=== PATIENT | male | born 1980 | race Caucasian/White ===

== ENCOUNTER 2019-09-29 23:57 | Emergency (ER) | payer SELFPAY ==
--- NOTE | 2019-09-30 01:09 | ER ---
Nurse's Notes [facility] Name: Anil Pickett Age: 39 yrs Sex: Male : 1980 Arrival Date: 09/29/2019 Time: 23:58 Bed 6 Private MD: Diagnosis: Bipolar disorder;Schizophrenia;Abuse of non-psychoactive substances;Adverse effect of amphetamines Presentation: 09/29 00:12 Chief complaint: Patient states: Hearing voices, feeling paranoid for 2 days. Taking ll1 meds as prescribed, but feels they need adjusted. Denies SI/HI. Coronavirus screen: Proceed with normal triage. Patient denies a cough. Patient denies shortness of breath or difficulty breathing. Patient denies measured and/or subjective temperature greater than 100.4F prior to today's visit. Patient denies travel on a cruise ship or to a country the [facility] currently lists as an affected area. Patient denies contact with known and/or suspected case of COVID-19. Ebola Screen: Patient denies travel to an Ebola-affected area in the 21 days before illness onset. Initial Sepsis Screen: Does the patient meet any 2 criteria? HR > 90 bpm. No. Patient's initial sepsis screen is negative. Risk Assessment: Do you want to hurt yourself or someone else? Patient reports no desire to harm self or others. 00:12 Method Of Arrival: Ambulatory ll1 00:12 Acuity: ABDOULAYE 3 ll1 01:33 Initial Sepsis Screen: Does the patient have a suspected source of infection? No. mg2 Patient's initial sepsis screen is negative. Onset of symptoms was September 29, 2019. Historical: - Allergies: 00:14 Erythromycin; ll1 - PMHx: 00:14 Bipolar disorder; schizoaffective; ll1 - PSHx: 00:14 None; ll1 - Immunization history:: Flu vaccine status is unknown. - Social history:: Smoking status: Patient reports the use of cigarette tobacco products, smokes one pack cigarettes per day. Patient/guardian denies using alcohol, street drugs. Screenin:32 Abuse screen: Denies threats or abuse. Denies injuries from another. Nutritional mg2 screening: No deficits noted. Tuberculosis screening: No symptoms or risk factors identified. Fall Risk IV access (20 points). Assessment: 01:31 General: Appears in no apparent distress. comfortable, Behavior is calm, cooperative. mg2 Pain: Denies pain. Neuro: Level of Consciousness is awake, alert, obeys commands, Oriented to person, place, time, situation, Reports hearing voices saying names that he dont know but denies SI or HI. Cardiovascular: Capillary refill < 3 seconds Patient's skin is warm and dry. Respiratory: Airway is patent Respiratory effort is even, unlabored, Respiratory pattern is regular, symmetrical. GI: No signs and/or symptoms were reported involving the gastrointestinal system. : No signs and/or symptoms were reported regarding the genitourinary system. EENT: No signs and/or symptoms were reported regarding the EENT system. Derm: Skin is intact, is healthy with good turgor, Skin is pink, warm \T\ dry. normal. Derm: Musculoskeletal: Circulation, motion, and sensation intact. Capillary refill < 3 seconds. 02:30 Reassessment: Patient appears in no apparent distress at this time. No changes from previously documented assessment. Patient and/or family updated on plan of care and expected duration. Pain level reassessed. Patient is alert, oriented x 3, equal unlabored respirations, skin warm/dry/pink. 03:30 Reassessment: Patient appears in no apparent distress at this time. No changes from previously documented assessment. Patient and/or family updated on plan of care and expected duration. Pain level reassessed. Patient is alert, oriented x 3, equal unlabored respirations, skin warm/dry/pink. Vital Signs: 00:12 BP 120 / 93; Pulse 113; Resp 18; Temp 97.7; Pulse Ox 100% ; Weight 61.23 kg; Height 6 ll1 ft. 0 in. (182.88 cm); Pain 0/10; 02:00 BP 118 / 78; Pulse 86; Resp 18; Pulse Ox 99% on R/A; wh 03:30 BP 124 / 84; Pulse 84; Resp 18; Pulse Ox 99% on R/A; wh 00:12 Body Mass Index 18.31 (61.23 kg, 182.88 cm) ll1 ED Course: 09/28 23:58 Patient arrived in ED. mr 09/29 00:13 Triage completed. ll1 00:14 Arm band placed on. ll1 00:41 Valdo Aguirre, REANNA is Primary Nurse. mg2 00:50 Antelmo Flores MD is Attending Physician. [facility] 01:25 Inserted saline lock: 20 gauge in right antecubital area, using aseptic technique. mg2 Blood collected. 01:31 No provider procedures requiring assistance completed. mg2 01:32 Patient has correct armband on for positive identification. Pulse ox on. NIBP on. Door mg2 closed. Warm blanket given. 02:02 called [facility] spoke to [place] to have screener evaluate patient. mw2 03:35 IV discontinued, intact, bleeding controlled, No redness/swelling at site. Administered Medications: 01:25 Drug: NS 0.9% 1000 ml Route: IV; Rate: 1 bolus; Site: right forearm; [facility] [place] 03:16 Follow up: Response: No adverse reaction; IV Status: Completed infusion 03:25 Drug: Ativan 1 mg Route: IVP; Site: right forearm; 03:34 Follow up: Response: No adverse reaction; Anxiety decreased; RASS: Alert and Calm (0) Outcome: 01:09 ER care complete, transfer ordered by . [facility] 03:07 Discharge ordered by . [facility] 03:34 Discharged to home ambulatory. 03:34 Condition: stable 03:34 Discharge instructions given to patient, Instructed on discharge instructions, follow up and referral plans. no drinking with medication, no driving heavy equipment, medication usage, POC. 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 03:35 Patient left the ED. Signatures: Antelmo Flores MD MD cha Rivera, Mary mr Ashton Nicole Satinder Laguerre mw2 Valdo Aguirre RN RN mg2 Elijah Khan RN RN ll1
--- NOTE | 2019-09-30 01:09 | EDPHYS ---
Physician Documentation [facility] Name: Anil Pickett Age: 39 yrs Sex: Male : 1980 Arrival Date: 09/29/2019 Time: 23:58 Bed 6 Private MD: YANE Physician Antelmo Flores HPI: 09/29 01:03 This 39 yrs old Male presents to ER via Ambulatory with complaints of Hearing tree voices, Hallucinations. 01:03 The patient presents to the emergency department with paranoia, psychosis, has tree experienced auditory hallucinations, random voices. Onset: The symptoms/episode began/occurred 5 day(s) ago. Past psychiatric history: Prior diagnosis: schizophrenia. Associated signs and symptoms: The patient has no apparent associated signs or symptoms. Severity of symptoms: At their worst the symptoms were mild in the emergency department the symptoms are unchanged. The patient has experienced similar episodes in the past, multiple times. Historical: - Allergies: 00:14 Erythromycin; ll1 - PMHx: 00:14 Bipolar disorder; schizoaffective; ll1 - PSHx: 00:14 None; ll1 - Immunization history:: Flu vaccine status is unknown. - Social history:: Smoking status: Patient reports the use of cigarette tobacco products, smokes one pack cigarettes per day. Patient/guardian denies using alcohol, street drugs. ROS: 01:04 Constitutional: Negative for fever, chills, and weight loss, Eyes: Negative for injury, tree pain, redness, and discharge, ENT: Negative for injury, pain, and discharge, Neck: Negative for injury, pain, and swelling, Cardiovascular: Negative for chest pain, palpitations, and edema, Respiratory: Negative for shortness of breath, cough, wheezing, and pleuritic chest pain, Abdomen/GI: Negative for abdominal pain, nausea, vomiting, diarrhea, and constipation, Back: Negative for injury and pain, : Negative for injury, bleeding, discharge, and swelling, MS/Extremity: Negative for injury and deformity, Skin: Negative for injury, rash, and discoloration, Neuro: Negative for headache, weakness, numbness, tingling, and seizure, Allergy/Immunology: Negative for hives, rash, and allergies, Endocrine: Negative for neck swelling, polydipsia, polyuria, polyphagia, and marked weight changes, Hematologic/Lymphatic: Negative for swollen nodes, abnormal bleeding, and unusual bruising. 01:04 Psych: Positive for anxiety, auditory hallucinations. Exam: 01:04 Constitutional: This is a well developed, well nourished patient who is awake, alert, tree and in no acute distress. Head/Face: Normocephalic, atraumatic. Eyes: Pupils equal round and reactive to light, extra-ocular motions intact. Lids and lashes normal. Conjunctiva and sclera are non-icteric and not injected. Cornea within normal limits. Periorbital areas with no swelling, redness, or edema. ENT: Nares patent. No nasal discharge, no septal abnormalities noted. Tympanic membranes are normal and external auditory canals are clear. Oropharynx with no redness, swelling, or masses, exudates, or evidence of obstruction, uvula midline. Mucous membranes moist. Neck: Trachea midline, no thyromegaly or masses palpated, and no cervical lymphadenopathy. Supple, full range of motion without nuchal rigidity, or vertebral point tenderness. No Meningismus. Chest/axilla: Normal chest wall appearance and motion. Nontender with no deformity. No lesions are appreciated. Cardiovascular: Regular rate and rhythm with a normal S1 and S2. No gallops, murmurs, or rubs. Normal PMI, no JVD. No pulse deficits. Respiratory: Lungs have equal breath sounds bilaterally, clear to auscultation and percussion. No rales, rhonchi or wheezes noted. No increased work of breathing, no retractions or nasal flaring. Abdomen/GI: Soft, non-tender, with normal bowel sounds. No distension or tympany. No guarding or rebound. No evidence of tenderness throughout. Back: No spinal tenderness. No costovertebral tenderness. Full range of motion. Male : Normal genitalia with no discharge or lesions. Skin: Warm, dry with normal turgor. Normal color with no rashes, no lesions, and no evidence of cellulitis. MS/ Extremity: Pulses equal, no cyanosis. Neurovascular intact. Full, normal range of motion. Neuro: Awake and alert, GCS 15, oriented to person, place, time, and situation. Cranial nerves II-XII grossly intact. Motor strength 5/5 in all extremities. Sensory grossly intact. Cerebellar exam normal. Normal gait. 01:04 Psych: Behavior/mood is pleasant, cooperative, Affect is calm, Oriented to person, place, time, Patient has no thoughts/intents to harm self or others. Judgement / Insight is normal. Delusions/hallucinations hearing voices. 03:12 ECG was reviewed by the Attending Physician. [facility] Vital Signs: 00:12 BP 120 / 93; Pulse 113; Resp 18; Temp 97.7; Pulse Ox 100% ; Weight 61.23 kg; Height 6 ll1 ft. 0 in. (182.88 cm); Pain 0/10; 02:00 BP 118 / 78; Pulse 86; Resp 18; Pulse Ox 99% on R/A; wh 03:30 BP 124 / 84; Pulse 84; Resp 18; Pulse Ox 99% on R/A; wh 00:12 Body Mass Index 18.31 (61.23 kg, 182.88 cm) ll1 MDM: 00:50 Patient medically screened. [facility] 01:07 Data reviewed: vital signs, nurses notes, lab test result(s), EKG. [facility] 03:09 Differential diagnosis: drug withdrawal. acute psychotic break, depression, psychosis tree secondary to non-compliance. Data interpreted: quality assurance monitor body: rate is 113 beats/min, rhythm is normal sinus rhythm, Pulse oximetry: on room air is 100 %. Test interpretation: by ED physician or midlevel provider: ECG. Counseling: I had a detailed discussion with the patient and/or guardian regarding: the historical points, exam findings, and any diagnostic results supporting the discharge/admit diagnosis, lab results, the need for outpatient follow up, for definitive care, a psychiatrist. ED course: dw with [facility], pt not homicidal , not suicidal, uds positive for meth, will dc home to follow up [facility]. 09/29 01:03 Order name: Acetaminophen; Complete Time: 03:04 [facility] 09/29 01:03 Order name: Basic Metabolic Panel; Complete Time: 03:04 [facility] 09/29 01:03 Order name: CBC with Diff; Complete Time: [facility] 09/29 01:03 Order name: ETOH Level; Complete Time: [facility] 09/29 01:03 Order name: Hepatic Function; Complete Time: 03:04 [facility] 09/29 01:03 Order name: PT-INR; Complete Time: [facility] 09/29 01:03 Order name: Ptt, Activated; Complete Time: [facility] 09/29 01:03 Order name: Salicylate; Complete Time: 01:53 [facility] 09/29 01:03 Order name: Urine Drug Screen; Complete Time: 01:53 [facility] 09/29 01:03 Order name: Depakote; Complete Time: 03:04 [facility] 09/29 01:30 Order name: Urine Dipstick--Ancillary (enter results) mw2 09/29 01:32 Order name: Urine Dipstick-Ancillary EDMS 09/29 01:03 Order name: EKG; Complete Time: 01:05 [facility] 09/29 01:03 Order name: EKG - Nurse/Tech; Complete Time: 01:30 [facility] 09/29 01:03 Order name: IV Saline Lock; Complete Time: 01:30 [facility] 09/29 01:03 Order name: Labs collected and sent; Complete Time: : [facility] 09/29 01:03 Order name: Urine Dipstick-Ancillary (obtain specimen); Complete Time: 01:30 [facility] EC:12 Rate is 90 beats/min. Rhythm is regular. QRS Denio is Normal. GA interval is normal. QRS tree interval is normal. QT interval is normal. No Q waves. T waves are Normal. No ST changes noted. Clinical impression: Normal ECG and No evidence of ischemia. Interpreted by me. Reviewed by me. Administered Medications: 01:25 Drug: NS 0.9% 1000 ml Route: IV; Rate: 1 bolus; Site: right forearm; [facility] 03:16 Follow up: Response: No adverse reaction; IV Status: Completed infusion 03:25 Drug: Ativan 1 mg Route: IVP; Site: right forearm; wh 03:34 Follow up: Response: No adverse reaction; Anxiety decreased; RASS: Alert and Calm (0) Disposition: 09/30/19 03:07 Discharged to Home. Impression: Bipolar disorder, Schizophrenia, Abuse of non-psychoactive substances, Adverse effect of amphetamines. - Condition is Stable. - Discharge Instructions: Stimulant Use Disorder-Amphetamines, Bipolar Disorder, Substance Use Disorder, Schizophrenia, Stimulant Use Disorder-Methamphetamines. - Prescriptions for hydroxyzine HCl 25 mg Oral tablet - take 1 tablet by ORAL route 3 times per day as needed; 30 tablet. - Medication Reconciliation Form, Thank You Letter, Antibiotic Education, Prescription Opioid Use form. - Follow up: Private Physician; When: 2 - 3 days; Reason: Recheck today's complaints, Continuance of care, Re-evaluation by your physician. - Problem is new. - Symptoms have improved. Signatures: Dispatcher [employer] EDAntelmo Lawson MD MD cha Habalo, Winsy wh Gardose, Michele, RN RN mg2 Elijah Khan RN RN ll1 Corrections: (The following items were deleted from the chart) 03:05 01:09 09/30/2019 01:09 Transfer ordered to Psych Facility. Diagnosis is Schizophrenia, tree unspecified; Bipolar disorder; Hallucinations, unspecified. Reason for transfer: Higher level of care. Accepting physician is to psych. Condition is Stable. Problem is new. Symptoms have improved. [facility] 03:35 03:07 09/30/2019 03:07 Discharged to Home. Impression: Bipolar disorder; Schizophrenia; wh Abuse of non-psychoactive substances; Adverse effect of amphetamines. Condition is Stable. Forms are Medication Reconciliation Form, Thank You Letter, Antibiotic Education, Prescription Opioid Use. Follow up: Private Physician; When: 2 - 3 days; Reason: Recheck today's complaints, Continuance of care, Re-evaluation by your physician. Problem is new. Symptoms have improved. tree
[2019-09-30] MEDS ORDERED: NA CHLORIDE 0.9% 1,000 ML ONE (01:20)
[2019-09-30 01:32] LABS: Urine Blood NEGATIVE (NEG); Urine Glucose NEGATIVE (NEG); Urine Protein NEGATIVE (NEG); Urine Specific Gravity 1.025 (1.005-1.030); Urine pH 6.5 (5.0-7.0)
[2019-09-30 01:34] LABS: Absolute Lymphocytes (CBC) 1.6 K/uL (0.7-4.9); Hematocrit 49.5 % (39.6-49.0); Lymphocytes % 21.2 % (15.3-44.8); MPV 7.7 fL (7.6-11.3); RBC Red Blood Cell Count 5.46 M/uL (4.33-5.43)
[2019-09-30 01:39] LABS: Protime INR 1.04
[2019-09-30 01:52] LABS: Barbiturates NEGATIVE (NEGATIVE); Benzodiazepines NEGATIVE (NEGATIVE); Cocaine NEGATIVE (NEGATIVE); METHAMPHETAM POSITIVE (NEGATIVE); Methadone NEGATIVE (NEGATIVE); Opiates NEGATIVE (NEGATIVE); Phencyclidine NEGATIVE (NEGATIVE); THC Cannibis NEGATIVE (NEGATIVE)
[2019-09-30 01:53] LABS: ALT/SGPT 26 U/L (12-78); AST/SGOT 16 U/L (15-37); Albumin 3.7 g/dL (3.4-5.0); Alkaline Phosphatase 55 U/L (45-117); BUN Blood Urea Nitrogen 14 mg/dL (7-18); Bicarbonate 27 mmol/L (21-32); Bilirubin Direct < 0.1 mg/dL (0-0.2); Bilirubin Total 0.4 mg/dL (0.2-1.0); Glucose Level 98 mg/dL (74-106); Potassium 4.2 mmol/L (3.5-5.1); Protein, Total 7.3 g/dL (6.4-8.2); Sodium Level 140 mmol/L (136-145)
[2019-09-30] MEDS ORDERED: LORazepam 2 MG/ML VIAL ONE (03:27)
[2019-09-30 03:44] VITALS: TEMP 97.7
[2019-09-30 03:45] VITALS: O2SAT 99
[2019-09-30 03:46] VITALS: BP 124/84
--- NOTE | 2019-09-30 06:20 | EKG ---
Test Date: 2019-09-30 Test Time: 01:12:32 Podiatrist: DOV MEASUREMENT RESULTS: Intervals: Rate: 90 VT: 178 QRSD: 88 QT: 354 QTc: 433 Emmett: P: 71 VT: 178 QRS: 7 T: 56 INTERPRETIVE STATEMENTS: Sinus rhythm with premature ventricular complexes or fusion complexes Otherwise normal ECG No previous ECG available for comparison Electronically Signed On 09-30-19 06:19:42 CDT by Ulises Brenner
== END 2019-09-30 03:35 | disposition home or self-care (01) ==
LOC: ER 23:57
DX: F25.0 Schizoaffective disorder, bipolar type (principal); F55.8 Abuse of other non-psychoactive substances; T43.625A Adverse effect of amphetamines, initial encounter; F17.210 Nicotine dependence, cigarettes, uncomplicated; Z88.3 Allergy status to other anti-infective agents
CPT/HCPCS: 36415; 80048; 80076; 80164; 80307; 80320; 80329; 81003; 85025; 85610; 85730; 93005; 96361; 96374; 99284; J7030